=== PATIENT | male | born 1945 | race Caucasian/White ===

== ENCOUNTER 2017-12-26 16:41 | Emergency (ER) | payer OTHER, SELFPAY ==
[2017-12-26] VITALS (13 sets, daily range): BP systolic 120–157; BP diastolic 59–74; PULSE 53–75; RESP 16–24; TEMP 36.7; O2SAT 95–97; BMI 35.2
--- NOTE | 2017-12-26 17:00 | DI.RAD.S_ITS ---
PROCEDURE: XR CHEST 1V INDICATIONS: chest pain TECHNIQUE: One view of the chest was acquired. COMPARISON: None. FINDINGS: Surgical changes and devices: Patient is status post median sternotomy. Lungs and pleura: No pleural effusions or pneumothorax. Lungs are clear. Mediastinum: Mediastinal contours appear normal. Heart size is normal. Bones and chest wall: No suspicious bony lesions. Overlying soft tissues appear unremarkable. IMPRESSION: No acute cardiopulmonary findings. Dictated by: Lissette Lake M.D. on 12/26/2017 at 17:24 Approved by: Lissette Lake M.D. on 12/26/2017 at 17:25
[2017-12-26 17:16] LABS: Add Manual Diff / Slide Review NO; Basophils Percent Auto 0.5 % (0-2); Hemoglobin 14.1 g/dL (13.5-17.5); Lymphocytes Percent Auto 30.5 % (25-40); Mean Corpuscular HGB Conc 34.4 % (30-36); Mean Corpuscular Hemoglobin 31.6 PG (26-34); Monocytes Percent Auto 14.3 % (3-14); Neutrophils Absolute Auto 3100 /uL (3000-5900); Neutrophils Percent Auto 50.7 % (50-75); Platelet Count 197 X10^3/uL (150-400); Red Blood Cell Count 4.45 X10^6/uL (4.5-5.9); Red Cell Distribution Width 13.3 % (11.6-14.8); White Blood Cell Count 6.1 X10^3/uL (4.5-11.0)
[2017-12-26 17:24] LABS: Prothrombin Time 11.1 SECONDS (10.1-12.7)
[2017-12-26 17:26] LABS: PTT Partial Thromboplastin Tim 31 SECONDS (26.4-36.2)
[2017-12-26 17:28] LABS: Alanine Aminotransferase 46 IU/L (21-72); Albumin 3.8 g/dL (3.5-5.0); Albumin Globulin Ratio 1.6 (1.0-2.8); Alkaline Phosphatase 66 U/L (38-126); Aspartate Aminotransferase 31 IU/L (17-59); BUN Creatinine Ratio 24.5 (6-22); Bilirubin Total 0.5 mg/dL (0.2-1.3); Blood Urea Nitrogen 27 mg/dL (9-20); Calcium 8.9 mg/dL (8.4-10.2); Carbon Dioxide 27 mmol/L (22-32); Chloride 108 mmol/L (98-107); Creatine Kinase 94 U/L (55-170); Estimated Glomerular Filt Rate > 60.0 mL/min (>60); Globulin 2.4 g/dL (1.7-4.1); Glucose 96 mg/dL (80-110); HEMOLYSIS 17 (0-50); Lipase 115 U/L (23-300); Potassium 4.5 mmol/L (3.4-5.1); Sodium 142 mmol/L (137-145); Total Protein 6.2 g/dL (6.3-8.2)
[2017-12-26 17:40] LABS: Troponin I < 0.012 ng/mL (0.01-0.034)
[2017-12-26] MEDS: NITROGLYCERIN 0.4 MG SL TAB SL ×3 (17:47→17:57)
--- NOTE | 2017-12-26 18:02 | ED.CHESTPAIN ---
HPI - Chest Pain <CONOR RiveraANDALUS[facility] HEALTH - Last Filed: 12/26/17 22:24> General Chief Complaint: Chest Pain Stated Complaint: CHEST TIGHTNESS,RADIATES DOWN LEFT ARM AND BACK Time Seen by Provider: 12/26/17 17:19 Source: patient and family Mode of arrival: ambulatory Limitations: no limitations History of Present Illness HPI narrative: Patient presents with chief complaint of chest pain. He started having pain in his back a few days ago, then started having pain radiating down his left arm yesterday. He presents with intermittent stabbing chest pain. Denies alleviating or exacerbating factors. 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 He states he is usually in bigeminy. His pain can go up to an 8/10. He took aspirin at home. He denies current dizziness, nausea, vomiting, diarrhea, fever, cough, congestion. He denies radiation of his pain otherwise. He denies abdominal pain. 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 He denies cough or shortness of breath. Related Data Allergies Allergy/AdvReac Type Severity Reaction Status Date / Time Sulfa (Sulfonamide Allergy Verified 12/26/17 16:59 Antibiotics) Review of Systems <CONOR RiveraAND[facility]US[facility]ALTH - Last Filed: 12/26/17 22:24> Review of Systems GENERAL: Denies chills, fatigue, malaise, fever, sweats. HEENT: Denies sinus pain, ear pain, sore throat, difficulty swallowing, dizziness. RESPIRATORY: See HPI CARDIOVASCULAR: See HPI GASTROINTESTINAL: Denies nausea, vomiting, abdominal pain, diarrhea, constipation, melena. : Denies dysuria, frequency, incontinence, hematuria, urinary retention. MUSCULOSKELETAL: denies weakness, joint pain, or bony pain SKIN: Denies rash, skin lesions, or other NEUROLOGIC: Denies weakness, headache, numbness, change in speech, confusion, seizures, incoordination. PSYCHIATRIC: No concerning psychosocial issues. 12 point review of systems is negative except for those stated above Exam <CONOR [facility]AND[facility] - Last Filed: 12/26/17 22:24> Narrative Exam Narrative: GENERAL: This is a well-nourished, well-developed patient, lying on stretcher HEAD: Atraumatic. Normocephalic. No temporal or scalp tenderness. EYES: Pupils equal round and reactive. Extraocular motions intact. No scleral icterus. No injection or drainage. ENT: Nose without bleeding, purulent drainage or septal hematoma. Throat without erythema, tonsillar hypertrophy or exudate. Uvula midline. Airway patent. NECK: Trachea midline. No JVD or lymphadenopathy. Supple, nontender, no meningeal signs. CARDIOVASCULAR: Regular rate and rhythm. No noted murmurs or gallops. RESPIRATORY: Clear to auscultation. Breath sounds equal bilaterally. No wheezes, rales, or rhonchi. No cough. No increased respiratory effort. No tried potting, no wanted to her dyspnea. GASTROINTESTINAL: Abdomen soft, non-tender, nondistended. No hepato-splenomegaly, or palpable masses. No guarding. EXTREMITIES: No clubbing, cyanosis, or edema. No joint tenderness, effusion, or edema noted. No pain on palpation of C-spine or T-spine. BACK: Nontender without deformity or crepitance. No flank tenderness. NEURO: AOx3. SKIN: No rash or erythema. Initial Vital Signs Initial Vital Signs: Vital Signs Temperature 98.0 F 12/26/17 16:56 Pulse Rate 66 12/26/17 16:56 Respiratory Rate 18 12/26/17 16:56 Blood Pressure 148/62 H 12/26/17 16:56 Pulse Oximetry 97 12/26/17 16:56 <Puneet Avalos DO - Last Filed: 12/26/17 22:33> Initial Vital Signs Initial Vital Signs: Vital Signs Temperature 98.0 F 12/26/17 16:56 Pulse Rate 66 12/26/17 16:56 Respiratory Rate 18 12/26/17 16:56 Blood Pressure 148/62 H 12/26/17 16:56 Pulse Oximetry 97 12/26/17 16:56 Course <CONOR Rivera-BC - Last Filed: 12/26/17 22:24> Additional Information: I checked on the patient several times throughout his stay. Patient stated that his chest pain came and went and repeatedly declined morphine. I checked with him just prior to his transportation was scheduled at 10:30 p.m. and had no questions or concerns. He pain at that time Orders Ordered: ED Orders 12/26/17 17:00 XR chest 1V Stat 12/26/17 17:10 Complete Blood Count AUTO DIFF Stat Comprehensive Metabolic Panel Stat Lipase Stat Partial Thromboplastin Time Stat Prothrombin Time INR Stat Troponin & CK Cardiac Panel Stat 12/26/17 18:12 CT angio chest PE protocol Stat 12/26/17 20:10 Troponin & CK Cardiac Panel Stat Discontinued Medications Sodium Chloride (Normal Saline 0.9%) 1,000 mls @ 1,000 mls/hr IV BOLUS ONE Stop: 12/26/17 19:37 Last Infusion: 12/26/17 20:33 Dose: 0 mls/hr Admin: 12/26/17 19:31 Dose: 1,000 mls/hr Nitroglycerin (Nitrostat) 0.4 mg SL [id number] PRN PRN Reason: Chest Pain Last Admin: 12/26/17 17:57 Dose: 0.4 mg Admin: 12/26/17 17:52 Dose: 0.4 mg Admin: 12/26/17 17:47 Dose: 0.4 mg Vital Signs - 8 hr 12/26/17 16:56 12/26/17 17:00 12/26/17 17:47 Temperature 98.0 F Pulse Rate 66 64 53 L Respiratory Rate 18 16 Blood Pressure 148/62 H 157/71 H Blood Pressure [Right Arm] 144/61 H Pulse Oximetry 97 97 12/26/17 17:52 12/26/17 17:57 12/26/17 18:00 Temperature Pulse Rate 75 70 Respiratory Rate 24 Blood Pressure 123/68 129/67 Blood Pressure [Right Arm] 120/60 Pulse Oximetry 95 12/26/17 18:02 12/26/17 18:44 12/26/17 19:30 Temperature Pulse Rate 75 57 L 58 L Respiratory Rate 24 19 Blood Pressure 120/66 Blood Pressure [Right Arm] 128/67 154/60 H Pulse Oximetry 96 97 12/26/17 20:34 12/26/17 21:30 12/26/17 22:16 Temperature Pulse Rate 57 L 57 L 60 Respiratory Rate 16 18 19 Blood Pressure Blood Pressure [Right Arm] 145/59 H 134/67 148/74 H Pulse Oximetry 97 97 97 <Puneet Avalos, DO - Last Filed: 12/26/17 22:33> Orders Ordered: ED Orders 12/26/17 17:00 XR chest 1V Stat 12/26/17 17:10 Complete Blood Count AUTO DIFF Stat Comprehensive Metabolic Panel Stat Lipase Stat Partial Thromboplastin Time Stat Prothrombin Time INR Stat Troponin & CK Cardiac Panel Stat 12/26/17 18:12 CT angio chest PE protocol Stat 12/26/17 20:10 Troponin & CK Cardiac Panel Stat Discontinued Medications Sodium Chloride (Normal Saline 0.9%) 1,000 mls @ 1,000 mls/hr IV BOLUS ONE Stop: 12/26/17 19:37 Last Infusion: 12/26/17 20:33 Dose: 0 mls/hr Admin: 12/26/17 19:31 Dose: 1,000 mls/hr Nitroglycerin (Nitrostat) 0.4 mg SL [id number] PRN PRN Reason: Chest Pain Last Admin: 12/26/17 17:57 Dose: 0.4 mg Admin: 12/26/17 17:52 Dose: 0.4 mg Admin: 12/26/17 17:47 Dose: 0.4 mg Vital Signs - 8 hr 12/26/17 16:56 12/26/17 17:00 12/26/17 17:47 Temperature 98.0 F Pulse Rate 66 64 53 L Respiratory Rate 18 16 Blood Pressure 148/62 H 157/71 H Blood Pressure [Right Arm] 144/61 H Pulse Oximetry 97 97 12/26/17 17:52 12/26/17 17:57 12/26/17 18:00 Temperature Pulse Rate 75 70 Respiratory Rate 24 Blood Pressure 123/68 129/67 Blood Pressure [Right Arm] 120/60 Pulse Oximetry 95 12/26/17 18:02 12/26/17 18:44 12/26/17 19:30 Temperature Pulse Rate 75 57 L 58 L Respiratory Rate 24 19 Blood Pressure 120/66 Blood Pressure [Right Arm] 128/67 154/60 H Pulse Oximetry 96 97 12/26/17 20:34 12/26/17 21:30 12/26/17 22:16 Temperature Pulse Rate 57 L 57 L 60 Respiratory Rate 16 18 19 Blood Pressure Blood Pressure [Right Arm] 145/59 H 134/67 148/74 H Pulse Oximetry 97 97 97 MDM - Chest Pain <EMIL Rivera - Last Filed: 12/26/17 22:24> Differential Diagnosis Likely stable angina, unstable angina pectoris, atypical chest pain, st elevation myocardial infarction and chest pain Medical Records Data Attestation: I reviewed the patient's medical records. Lab Data Attestation: I reviewed the patient's lab results. Result diagrams: 12/26/17 17:10 12/26/17 17:10 Lab Results 12/26/17 12/26/17 12/26/17 Range/Units 17:10 17:10 17:10 WBC 6.1 (4.5-11.0) X10^3/uL RBC 4.45 L (4.5-5.9) X10^6/uL Hgb 14.1 (13.5-17.5) g/dL Hct 41.0 (41-53) % MCV 92.0 (80-100) fL MCH 31.6 (26-34) PG MCHC 34.4 (30-36) % RDW 13.3 (11.6-14.8) % Plt Count 197 (150-400) X10^3/uL Neut % (Auto) 50.7 (50-75) % Lymph % (Auto) 30.5 (25-40) % Laurens % (Auto) 14.3 H (3-14) % Eos % (Auto) 4.0 (2-4) % Baso % (Auto) 0.5 (0-2) % Neut # (Auto) 3100 (9043-0582) /uL PT 11.1 (10.1-12.7) SECONDS INR 1.0 (0.9-1.3) APTT 31 (26.4-36.2) SECONDS Sodium 142 (137-145) mmol/L Potassium 4.5 (3.4-5.1) mmol/L Chloride 108 H (98-107) mmol/L Carbon Dioxide 27 (22-32) mmol/L BUN 27 H (9-20) mg/dL Creatinine 1.10 (0.66-1.25) mg/dL Estimated GFR > 60.0 (>60) mL/min BUN/Creatinine Ratio 24.5 H (6-22) Glucose 96 (80-110) mg/dL Calcium 8.9 (8.4-10.2) mg/dL Total Bilirubin 0.5 (0.2-1.3) mg/dL AST 31 (17-59) IU/L ALT 46 (21-72) IU/L Alkaline Phosphatase 66 (38-126) U/L Total Creatine Kinase 94 (55-170) U/L Troponin I < 0.012 (0.01-0.034) ng/mL Total Protein 6.2 L (6.3-8.2) g/dL Albumin 3.8 (3.5-5.0) g/dL Globulin 2.4 (1.7-4.1) g/dL Albumin/Globulin Ratio 1.6 (1.0-2.8) Lipase 115 (23-300) U/L 12/26/17 Range/Units 20:10 WBC (4.5-11.0) X10^3/uL RBC (4.5-5.9) X10^6/uL Hgb (13.5-17.5) g/dL Hct (41-53) % MCV (80-100) fL MCH (26-34) PG MCHC (30-36) % RDW (11.6-14.8) % Plt Count (150-400) X10^3/uL Neut % (Auto) (50-75) % Lymph % (Auto) (25-40) % Laurens % (Auto) (3-14) % Eos % (Auto) (2-4) % Baso % (Auto) (0-2) % Neut # (Auto) (4134-9463) /uL PT (10.1-12.7) SECONDS INR (0.9-1.3) APTT (26.4-36.2) SECONDS Sodium (137-145) mmol/L Potassium (3.4-5.1) mmol/L Chloride (98-107) mmol/L Carbon Dioxide (22-32) mmol/L BUN (9-20) mg/dL Creatinine (0.66-1.25) mg/dL Estimated GFR (>60) mL/min BUN/Creatinine Ratio (6-22) Glucose (80-110) mg/dL Calcium (8.4-10.2) mg/dL Total Bilirubin (0.2-1.3) mg/dL AST (17-59) IU/L ALT (21-72) IU/L Alkaline Phosphatase (38-126) U/L Total Creatine Kinase 87 (55-170) U/L Troponin I < 0.012 (0.01-0.034) ng/mL Total Protein (6.3-8.2) g/dL Albumin (3.5-5.0) g/dL Globulin (1.7-4.1) g/dL Albumin/Globulin Ratio (1.0-2.8) Lipase (23-300) U/L Imaging Data Chest x-ray: Radiologist's impression: [address] [address] XRay Report Signed Patient: Aleksandr Emmanuel V MR#: [id number] : 1945 Acct:[id number] Age/Sex: 72 / M Date of Service: 12/26/17 Loc: ED Accession Number: [id number] Procedure: XR chest 1V Ordering Provider: Deyanira Galvez D.O. PROCEDURE: XR CHEST 1V INDICATIONS: chest pain TECHNIQUE: One view of the chest was acquired. COMPARISON: None. FINDINGS: Surgical changes and devices: Patient is status post median sternotomy. Lungs and pleura: No pleural effusions or pneumothorax. Lungs are clear. Mediastinum: Mediastinal contours appear normal. Heart size is normal. Bones and chest wall: No suspicious bony lesions. Overlying soft tissues appear unremarkable. IMPRESSION: No acute cardiopulmonary findings. Dictated by: Lissette Lake M.D. on 12/26/2017 at 17:24 Approved by: Lissette Lake M.D. on 12/26/2017 at 17:25 CTA chest: Radiologist's impression: [address] [address] [address] Scan Report Signed Patient: Aleksandr Emmanuel V MR#: [id number] : 1945 Acct:[id number] Age/Sex: 72 / M Date of Service: 12/26/17 Loc: ED Accession Number: [id number] Procedure: CT angio chest PE protocol Ordering Provider: Deyanira Peres [employer]IPROCATING [employer]RILL OPERATOR-BC PROCEDURE: CT ANGIO CHEST PE PROTOCOL INDICATIONS: chest pain, back pain TECHNIQUE: After the administration of intravenous contrast, 2 mm thick sections acquired from the pulmonary apices to the posterior costophrenic angles. 3-dimensional maximum intensity projection (MIP) coronal and sagittal reformats were then acquired through the thorax. For radiation dose reduction, the following was used: automated exposure control, adjustment of mA and/or kV according to patient size. COMPARISON: None. FINDINGS: Image quality: Excellent. Pulmonary arteries: Pulmonary arteries are normal in size, and demonstrate no intraluminal filling defects to suggest central pulmonary embolism. Lungs and pleura: Lungs are clear. No pleural effusions or pneumothorax. Central and peripheral airways are patent. Mediastinum: Heart size is normal, without pericardial effusion. No mediastinal or hilar adenopathy. Thoracic aorta is normal in caliber and enhancement. Esophagus is normal in caliber, without hiatal hernia. Bones and chest wall: Patient is status post median sternotomy. No suspicious bony lesions. Ribs and thoracic spine appear intact throughout. Thyroid gland is unremarkable. No axillary or supraclavicular adenopathy. Abdomen: Visualized upper abdominal solid organs appear normal in the early arterial phase of enhancement. IMPRESSION: 1. No acute pulmonary embolus. Dictated by: Lissette Lake M.D. on 12/26/2017 at 19:04 Approved by: Lissette Lake M.D. on 12/26/2017 at 19:07 [facility] Narrative Medical decision making narrative: Patient presents with chief complaint of chest pain, arm pain, back pain. Given his complex medical history including a CABG of multiple CVAs, a chest pain rule out was attempted. He was given 3 nitroglycerin. He was given a CTA given his pain radiating from his chest was back to rule out a PE. However given his history, and feel a thorough cardiac rule out is needed. The patient had a CBC, CMP, troponin and cardiac enzymes drawn. He had 2-troponins done. He does have some intermittent chest pain that is described as shooting and stabbing. However says he could comes and goes quickly. I offered him morphine, which he declined. I spoke with Dr. Greer at [facility] who kindly agreed to accept the patient for a cardiac rule out. Unfortunately there are no beds at [facility] were [facility]. <Puneet Avalos, DO - Last Filed: 12/26/17 22:33> Lab Data Lab Results 12/26/17 12/26/17 12/26/17 Range/Units 17:10 17:10 17:10 WBC 6.1 (4.5-11.0) X10^3/uL RBC 4.45 L (4.5-5.9) X10^6/uL Hgb 14.1 (13.5-17.5) g/dL Hct 41.0 (41-53) % MCV 92.0 (80-100) fL MCH 31.6 (26-34) PG MCHC 34.4 (30-36) % RDW 13.3 (11.6-14.8) % Plt Count 197 (150-400) X10^3/uL Neut % (Auto) 50.7 (50-75) % Lymph % (Auto) 30.5 (25-40) % Laurens % (Auto) 14.3 H (3-14) % Eos % (Auto) 4.0 (2-4) % Baso % (Auto) 0.5 (0-2) % Neut # (Auto) 3100 (8049-9754) /uL PT 11.1 (10.1-12.7) SECONDS INR 1.0 (0.9-1.3) APTT 31 (26.4-36.2) SECONDS Sodium 142 (137-145) mmol/L Potassium 4.5 (3.4-5.1) mmol/L Chloride 108 H (98-107) mmol/L Carbon Dioxide 27 (22-32) mmol/L BUN 27 H (9-20) mg/dL Creatinine 1.10 (0.66-1.25) mg/dL Estimated GFR > 60.0 (>60) mL/min BUN/Creatinine Ratio 24.5 H (6-22) Glucose 96 (80-110) mg/dL Calcium 8.9 (8.4-10.2) mg/dL Total Bilirubin 0.5 (0.2-1.3) mg/dL AST 31 (17-59) IU/L ALT 46 (21-72) IU/L Alkaline Phosphatase 66 (38-126) U/L Total Creatine Kinase 94 (55-170) U/L Troponin I < 0.012 (0.01-0.034) ng/mL Total Protein 6.2 L (6.3-8.2) g/dL Albumin 3.8 (3.5-5.0) g/dL Globulin 2.4 (1.7-4.1) g/dL Albumin/Globulin Ratio 1.6 (1.0-2.8) Lipase 115 (23-300) U/L / Range/Units 20:10 WBC (4.5-11.0) X10^3/uL RBC (4.5-5.9) X10^6/uL Hgb (13.5-17.5) g/dL Hct (41-53) % MCV (80-100) fL MCH (26-34) PG MCHC (30-36) % RDW (11.6-14.8) % Plt Count (150-400) X10^3/uL Neut % (Auto) (50-75) % Lymph % (Auto) (25-40) % Laurens % (Auto) (3-14) % Eos % (Auto) (2-4) % Baso % (Auto) (0-2) % Neut # (Auto) (3722-8101) /uL PT (10.1-12.7) SECONDS INR (0.9-1.3) APTT (26.4-36.2) SECONDS Sodium (137-145) mmol/L Potassium (3.4-5.1) mmol/L Chloride (98-107) mmol/L Carbon Dioxide (22-32) mmol/L BUN (9-20) mg/dL Creatinine (0.66-1.25) mg/dL Estimated GFR (>60) mL/min BUN/Creatinine Ratio (6-22) Glucose (80-110) mg/dL Calcium (8.4-10.2) mg/dL Total Bilirubin (0.2-1.3) mg/dL AST (17-59) IU/L ALT (21-72) IU/L Alkaline Phosphatase (38-126) U/L Total Creatine Kinase 87 (55-170) U/L Troponin I < 0.012 (0.01-0.034) ng/mL Total Protein (6.3-8.2) g/dL Albumin (3.5-5.0) g/dL Globulin (1.7-4.1) g/dL Albumin/Globulin Ratio (1.0-2.8) Lipase (23-300) U/L Discharge Plan Departure Patient Disposition: [facility] Clinical Impression: Chest pain <Puneet Avalos DO - Last Filed: 12/26/17 22:33> Cosign ED Attending Cosignature Attestation: I was available for consultation during this patient's emergency department encounter
--- NOTE | 2017-12-26 18:12 | DI.CT.S_ITS ---
PROCEDURE: CT ANGIO CHEST PE PROTOCOL INDICATIONS: chest pain, back pain TECHNIQUE: After the administration of intravenous contrast, 2 mm thick sections acquired from the pulmonary apices to the posterior costophrenic angles. 3-dimensional maximum intensity projection (MIP) coronal and sagittal reformats were then acquired through the thorax. For radiation dose reduction, the following was used: automated exposure control, adjustment of mA and/or kV according to patient size. COMPARISON: None. FINDINGS: Image quality: Excellent. Pulmonary arteries: Pulmonary arteries are normal in size, and demonstrate no intraluminal filling defects to suggest central pulmonary embolism. Lungs and pleura: Lungs are clear. No pleural effusions or pneumothorax. Central and peripheral airways are patent. Mediastinum: Heart size is normal, without pericardial effusion. No mediastinal or hilar adenopathy. Thoracic aorta is normal in caliber and enhancement. Esophagus is normal in caliber, without hiatal hernia. Bones and chest wall: Patient is status post median sternotomy. No suspicious bony lesions. Ribs and thoracic spine appear intact throughout. Thyroid gland is unremarkable. No axillary or supraclavicular adenopathy. Abdomen: Visualized upper abdominal solid organs appear normal in the early arterial phase of enhancement. IMPRESSION: 1. No acute pulmonary embolus. Dictated by: Lissette Lake M.D. on 12/26/2017 at 19:04 Approved by: Lissette Lake M.D. on 12/26/2017 at 19:07
[2017-12-26] MEDS: SODIUM CHLORIDE 0.9% 1,000 ML 1000 ML IV (19:31)
[2017-12-26 20:30] LABS: Creatine Kinase 87 U/L (55-170)
[2017-12-26 20:46] LABS: Troponin I < 0.012 ng/mL (0.01-0.034)
--- NOTE | 2017-12-26 20:53 | ED_ITS ---
HPI - Chest Pain <[facility] - Last Filed: 12/26/17 22:24> General Chief Complaint: Chest Pain Stated Complaint: CHEST TIGHTNESS,RADIATES DOWN LEFT ARM AND BACK Time Seen by Provider: 12/26/17 17:19 Source: patient and family Mode of arrival: ambulatory Limitations: no limitations History of Present Illness HPI narrative: Patient presents with chief complaint of chest pain. He started having pain in his back a few days ago, then started having pain radiating down his left arm yesterday. He presents with intermittent stabbing chest pain. Denies alleviating or exacerbating factors. 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 He states he is usually in bigeminy. His pain can go up to an 8/ 10. He took aspirin at home. He denies current dizziness, nausea, vomiting, diarrhea, fever, cough, congestion. He denies radiation of his pain otherwise. He denies abdominal pain. 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 He denies cough or shortness of breath. Related Data Allergies Allergy/AdvReac Type Severity Reaction Status Date / Time Sulfa (Sulfonamide Allergy Verified 12/26/17 16:59 Antibiotics) Review of Systems <[facility] - Last Filed: 12/26/17 22:24> Review of Systems GENERAL: Denies chills, fatigue, malaise, fever, sweats. HEENT: Denies sinus pain, ear pain, sore throat, difficulty swallowing, dizziness. RESPIRATORY: See HPI CARDIOVASCULAR: See HPI GASTROINTESTINAL: Denies nausea, vomiting, abdominal pain, diarrhea, constipation, melena. : Denies dysuria, frequency, incontinence, hematuria, urinary retention. MUSCULOSKELETAL: denies weakness, joint pain, or bony pain SKIN: Denies rash, skin lesions, or other NEUROLOGIC: Denies weakness, headache, numbness, change in speech, confusion, seizures, incoordination. PSYCHIATRIC: No concerning psychosocial issues. 12 point review of systems is negative except for those stated above Exam <[facility] - Last Filed: 12/26/17 22:24> Narrative Exam Narrative: GENERAL: This is a well-nourished, well-developed patient, lying on stretcher HEAD: Atraumatic. Normocephalic. No temporal or scalp tenderness. EYES: Pupils equal round and reactive. Extraocular motions intact. No scleral icterus. No injection or drainage. ENT: Nose without bleeding, purulent drainage or septal hematoma. Throat without erythema, tonsillar hypertrophy or exudate. Uvula midline. Airway patent. NECK: Trachea midline. No JVD or lymphadenopathy. Supple, nontender, no meningeal signs. CARDIOVASCULAR: Regular rate and rhythm. No noted murmurs or gallops. RESPIRATORY: Clear to auscultation. Breath sounds equal bilaterally. No wheezes , rales, or rhonchi. No cough. No increased respiratory effort. No tried potting, no wanted to her dyspnea. GASTROINTESTINAL: Abdomen soft, non-tender, nondistended. No hepato-splenomegaly , or palpable masses. No guarding. EXTREMITIES: No clubbing, cyanosis, or edema. No joint tenderness, effusion, or edema noted. No pain on palpation of C-spine or T-spine. BACK: Nontender without deformity or crepitance. No flank tenderness. NEURO: AOx3. SKIN: No rash or erythema. Initial Vital Signs Initial Vital Signs: Vital Signs Temperature 98.0 F 12/26/17 16:56 Pulse Rate 66 12/26/17 16:56 Respiratory Rate 18 12/26/17 16:56 Blood Pressure 148/62 H 12/26/17 16:56 Pulse Oximetry 97 12/26/17 16:56 <Puneet Avalos DO - Last Filed: 12/26/17 22:33> Initial Vital Signs Initial Vital Signs: Vital Signs Temperature 98.0 F 12/26/17 16:56 Pulse Rate 66 12/26/17 16:56 Respiratory Rate 18 12/26/17 16:56 Blood Pressure 148/62 H 12/26/17 16:56 Pulse Oximetry 97 12/26/17 16:56 Course <CONOR Rivera-[facility] - Last Filed: 12/26/17 22:24> Additional Information: I checked on the patient several times throughout his stay. Patient stated that his chest pain came and went and repeatedly declined morphine. I checked with him just prior to his transportation was scheduled at 10:30 p.m. and had no questions or concerns. He pain at that time Orders Ordered: ED Orders 12/26/17 17:00 XR chest 1V Stat 12/26/17 17:10 Complete Blood Count AUTO DIFF Stat Comprehensive Metabolic Panel Stat Lipase Stat Partial Thromboplastin Time Stat Prothrombin Time INR Stat Troponin & CK Cardiac Panel Stat 12/26/17 18:12 CT angio chest PE protocol Stat 12/26/17 20:10 Troponin & CK Cardiac Panel Stat Discontinued Medications Sodium Chloride (Normal Saline 0.9%) 1,000 mls @ 1,000 mls/hr IV BOLUS ONE Stop: 12/26/17 19:37 Last Infusion: 12/26/17 20:33 Dose: 0 mls/hr Admin: 12/26/17 19:31 Dose: 1,000 mls/hr Nitroglycerin (Nitrostat) 0.4 mg SL [id number] PRN PRN Reason: Chest Pain Last Admin: 12/26/17 17:57 Dose: 0.4 mg Admin: 12/26/17 17:52 Dose: 0.4 mg Admin: 12/26/17 17:47 Dose: 0.4 mg Vital Signs - 8 hr 12/26/17 16:56 12/26/17 17:00 12/26/17 17:47 Temperature 98.0 F Pulse Rate 66 64 53 L Respiratory Rate 18 16 Blood Pressure 148/62 H 157/71 H Blood Pressure [Right Arm] 144/61 H Pulse Oximetry 97 97 12/26/17 17:52 12/26/17 17:57 12/26/17 18:00 Temperature Pulse Rate 75 70 Respiratory Rate 24 Blood Pressure 123/68 129/67 Blood Pressure [Right Arm] 120/60 Pulse Oximetry 95 12/26/17 18:02 12/26/17 18:44 12/26/17 19:30 Temperature Pulse Rate 75 57 L 58 L Respiratory Rate 24 19 Blood Pressure 120/66 Blood Pressure [Right Arm] 128/67 154/60 H Pulse Oximetry 96 97 12/26/17 20:34 12/26/17 21:30 12/26/17 22:16 Temperature Pulse Rate 57 L 57 L 60 Respiratory Rate 16 18 19 Blood Pressure Blood Pressure [Right Arm] 145/59 H 134/67 148/74 H Pulse Oximetry 97 97 97 <Puneet Avalos, DO - Last Filed: 12/26/17 22:33> Orders Ordered: ED Orders 12/26/17 17:00 XR chest 1V Stat 12/26/17 17:10 Complete Blood Count AUTO DIFF Stat Comprehensive Metabolic Panel Stat Lipase Stat Partial Thromboplastin Time Stat Prothrombin Time INR Stat Troponin & CK Cardiac Panel Stat 12/26/17 18:12 CT angio chest PE protocol Stat 12/26/17 20:10 Troponin & CK Cardiac Panel Stat Discontinued Medications Sodium Chloride (Normal Saline 0.9%) 1,000 mls @ 1,000 mls/hr IV BOLUS ONE Stop: 12/26/17 19:37 Last Infusion: 12/26/17 20:33 Dose: 0 mls/hr Admin: 12/26/17 19:31 Dose: 1,000 mls/hr Nitroglycerin (Nitrostat) 0.4 mg SL [id number] PRN PRN Reason: Chest Pain Last Admin: 12/26/17 17:57 Dose: 0.4 mg Admin: 12/26/17 17:52 Dose: 0.4 mg Admin: 12/26/17 17:47 Dose: 0.4 mg Vital Signs - 8 hr 12/26/17 16:56 12/26/17 17:00 12/26/17 17:47 Temperature 98.0 F Pulse Rate 66 64 53 L Respiratory Rate 18 16 Blood Pressure 148/62 H 157/71 H Blood Pressure [Right Arm] 144/61 H Pulse Oximetry 97 97 12/26/17 17:52 12/26/17 17:57 12/26/17 18:00 Temperature Pulse Rate 75 70 Respiratory Rate 24 Blood Pressure 123/68 129/67 Blood Pressure [Right Arm] 120/60 Pulse Oximetry 95 12/26/17 18:02 12/26/17 18:44 12/26/17 19:30 Temperature Pulse Rate 75 57 L 58 L Respiratory Rate 24 19 Blood Pressure 120/66 Blood Pressure [Right Arm] 128/67 154/60 H Pulse Oximetry 96 97 12/26/17 20:34 12/26/17 21:30 12/26/17 22:16 Temperature Pulse Rate 57 L 57 L 60 Respiratory Rate 16 18 19 Blood Pressure Blood Pressure [Right Arm] 145/59 H 134/67 148/74 H Pulse Oximetry 97 97 97 MDM - Chest Pain <EMIL Rivera - Last Filed: 12/26/17 22:24> Differential Diagnosis Likely stable angina, unstable angina pectoris, atypical chest pain, st elevation myocardial infarction and chest pain Medical Records Data Attestation: I reviewed the patient's medical records. Lab Data Attestation: I reviewed the patient's lab results. Result diagrams: 12/26/17 17:10 12/26/17 17:10 Lab Results 12/26/17 12/26/17 12/26/17 Range/Units 17:10 17:10 17:10 WBC 6.1 (4.5-11.0) X10^3/uL RBC 4.45 L (4.5-5.9) X10^6/uL Hgb 14.1 (13.5-17.5) g/dL Hct 41.0 (41-53) % MCV 92.0 (80-100) fL MCH 31.6 (26-34) PG MCHC 34.4 (30-36) % RDW 13.3 (11.6-14.8) % Plt Count 197 (150-400) X10^3/uL Neut % (Auto) 50.7 (50-75) % Lymph % (Auto) 30.5 (25-40) % [place] % (Auto) 14.3 H (3-14) % Eos % (Auto) 4.0 (2-4) % Baso % (Auto) 0.5 (0-2) % Neut # (Auto) 3100 (3536-6682) /uL PT 11.1 (10.1-12.7) SECONDS INR 1.0 (0.9-1.3) APTT 31 (26.4-36.2) SECONDS Sodium 142 (137-145) mmol/L Potassium 4.5 (3.4-5.1) mmol/L Chloride 108 H (98-107) mmol/L Carbon Dioxide 27 (22-32) mmol/L BUN 27 H (9-20) mg/dL Creatinine 1.10 (0.66-1.25) mg/dL Estimated GFR > 60.0 (>60) mL/min BUN/Creatinine Ratio 24.5 H (6-22) Glucose 96 (80-110) mg/dL Calcium 8.9 (8.4-10.2) mg/dL Total Bilirubin 0.5 (0.2-1.3) mg/dL AST 31 (17-59) IU/L ALT 46 (21-72) IU/L Alkaline Phosphatase 66 (38-126) U/L Total Creatine Kinase 94 (55-170) U/L Troponin I < 0.012 (0.01-0.034) ng/mL Total Protein 6.2 L (6.3-8.2) g/dL Albumin 3.8 (3.5-5.0) g/dL Globulin 2.4 (1.7-4.1) g/dL Albumin/Globulin Ratio 1.6 (1.0-2.8) Lipase 115 (23-300) U/L 12/26/17 Range/Units 20:10 WBC (4.5-11.0) X10^3/uL RBC (4.5-5.9) X10^6/uL Hgb (13.5-17.5) g/dL Hct (41-53) % MCV (80-100) fL MCH (26-34) PG MCHC (30-36) % RDW (11.6-14.8) % Plt Count (150-400) X10^3/uL Neut % (Auto) (50-75) % Lymph % (Auto) (25-40) % [place] % (Auto) (3-14) % Eos % (Auto) (2-4) % Baso % (Auto) (0-2) % Neut # (Auto) (4165-8140) /uL PT (10.1-12.7) SECONDS INR (0.9-1.3) APTT (26.4-36.2) SECONDS Sodium (137-145) mmol/L Potassium (3.4-5.1) mmol/L Chloride (98-107) mmol/L Carbon Dioxide (22-32) mmol/L BUN (9-20) mg/dL Creatinine (0.66-1.25) mg/dL Estimated GFR (>60) mL/min BUN/Creatinine Ratio (6-22) Glucose (80-110) mg/dL Calcium (8.4-10.2) mg/dL Total Bilirubin (0.2-1.3) mg/dL AST (17-59) IU/L ALT (21-72) IU/L Alkaline Phosphatase (38-126) U/L Total Creatine Kinase 87 (55-170) U/L Troponin I < 0.012 (0.01-0.034) ng/mL Total Protein (6.3-8.2) g/dL Albumin (3.5-5.0) g/dL Globulin (1.7-4.1) g/dL Albumin/Globulin Ratio (1.0-2.8) Lipase (23-300) U/L Imaging Data Chest x-ray: Radiologist's impression: [address] [address] XRay Report Signed Patient: Aleksandr Emmanuel V MR#: [id number] : 1945 Acct:[id number] Age/Sex: 72 / M Date of Service: 12/26/17 Loc: ED Accession Number: [id number] Procedure: XR chest 1V Ordering Provider: Deyanira Galvez D.O. PROCEDURE: XR CHEST 1V INDICATIONS: chest pain TECHNIQUE: One view of the chest was acquired. COMPARISON: None. FINDINGS: Surgical changes and devices: Patient is status post median sternotomy. Lungs and pleura: No pleural effusions or pneumothorax. Lungs are clear. Mediastinum: Mediastinal contours appear normal. Heart size is normal. Bones and chest wall: No suspicious bony lesions. Overlying soft tissues appear unremarkable. IMPRESSION: No acute cardiopulmonary findings. Dictated by: Lissette Lake M.D. on 12/26/2017 at 17:24 Approved by: Lissette Lake M.D. on 12/26/2017 at 17:25 CTA chest: Radiologist's impression: [address] [address] [address] Scan Report Signed Patient: Aleksandr Emmanuel V MR#: [id number] : 1945 Acct:[id number] Age/Sex: 72 / M Date of Service: 12/26/17 Loc: ED Accession Number: [id number] Procedure: CT angio chest PE protocol Ordering Provider: Deyanira Peres [employer] PROCEDURE: CT ANGIO CHEST PE PROTOCOL INDICATIONS: chest pain, back pain TECHNIQUE: After the administration of intravenous contrast, 2 mm thick sections acquired from the pulmonary apices to the posterior costophrenic angles. 3-dimensional maximum intensity projection (MIP) coronal and sagittal reformats were then acquired through the thorax. For radiation dose reduction, the following was used: automated exposure control, adjustment of mA and/or kV according to patient size. COMPARISON: None. FINDINGS: Image quality: Excellent. Pulmonary arteries: Pulmonary arteries are normal in size, and demonstrate no intraluminal filling defects to suggest central pulmonary embolism. Lungs and pleura: Lungs are clear. No pleural effusions or pneumothorax. Central and peripheral airways are patent. Mediastinum: Heart size is normal, without pericardial effusion. No mediastinal or hilar adenopathy. Thoracic aorta is normal in caliber and enhancement. Esophagus is normal in caliber, without hiatal hernia. Bones and chest wall: Patient is status post median sternotomy. No suspicious bony lesions. Ribs and thoracic spine appear intact throughout. Thyroid gland is unremarkable. No axillary or supraclavicular adenopathy. Abdomen: Visualized upper abdominal solid organs appear normal in the early arterial phase of enhancement. IMPRESSION: 1. No acute pulmonary embolus. Dictated by: Lissette Lake M.D. on 12/26/2017 at 19:04 Approved by: Lissette Lake M.D. on 12/26/2017 at 19:07 [facility] Narrative Medical decision making narrative: Patient presents with chief complaint of chest pain, arm pain, back pain. Given his complex medical history including a CABG of multiple CVAs, a chest pain rule out was attempted. He was given 3 nitroglycerin. He was given a CTA given his pain radiating from his chest was back to rule out a PE. However given his history, and feel a thorough cardiac rule out is needed. The patient had a CBC, CMP, troponin and cardiac enzymes drawn. He had 2- troponins done. He does have some intermittent chest pain that is described as shooting and stabbing. However says he could comes and goes quickly. I offered him morphine, which he declined. I spoke with Dr. Greer at [place] who kindly agreed to accept the patient for a cardiac rule out. Unfortunately there are no beds at [facility]. <Puneet Avalos, DO - Last Filed: 12/26/17 22:33> Lab Data Lab Results 12/26/17 12/26/17 12/26/17 Range/Units 17:10 17:10 17:10 WBC 6.1 (4.5-11.0) X10^3/uL RBC 4.45 L (4.5-5.9) X10^6/uL Hgb 14.1 (13.5-17.5) g/dL Hct 41.0 (41-53) % MCV 92.0 (80-100) fL MCH 31.6 (26-34) PG MCHC 34.4 (30-36) % RDW 13.3 (11.6-14.8) % Plt Count 197 (150-400) X10^3/uL Neut % (Auto) 50.7 (50-75) % Lymph % (Auto) 30.5 (25-40) % [place] % (Auto) 14.3 H (3-14) % Eos % (Auto) 4.0 (2-4) % Baso % (Auto) 0.5 (0-2) % Neut # (Auto) 3100 (3494-2262) /uL PT 11.1 (10.1-12.7) SECONDS INR 1.0 (0.9-1.3) APTT 31 (26.4-36.2) SECONDS Sodium 142 (137-145) mmol/L Potassium 4.5 (3.4-5.1) mmol/L Chloride 108 H (98-107) mmol/L Carbon Dioxide 27 (22-32) mmol/L BUN 27 H (9-20) mg/dL Creatinine 1.10 (0.66-1.25) mg/dL Estimated GFR > 60.0 (>60) mL/min BUN/Creatinine Ratio 24.5 H (6-22) Glucose 96 (80-110) mg/dL Calcium 8.9 (8.4-10.2) mg/dL Total Bilirubin 0.5 (0.2-1.3) mg/dL AST 31 (17-59) IU/L ALT 46 (21-72) IU/L Alkaline Phosphatase 66 (38-126) U/L Total Creatine Kinase 94 (55-170) U/L Troponin I < 0.012 (0.01-0.034) ng/mL Total Protein 6.2 L (6.3-8.2) g/dL Albumin 3.8 (3.5-5.0) g/dL Globulin 2.4 (1.7-4.1) g/dL Albumin/Globulin Ratio 1.6 (1.0-2.8) Lipase 115 (23-300) U/L / Range/Units 20:10 WBC (4.5-11.0) X10^3/uL RBC (4.5-5.9) X10^6/uL Hgb (13.5-17.5) g/dL Hct (41-53) % MCV (80-100) fL MCH (26-34) PG MCHC (30-36) % RDW (11.6-14.8) % Plt Count (150-400) X10^3/uL Neut % (Auto) (50-75) % Lymph % (Auto) (25-40) % [place] % (Auto) (3-14) % Eos % (Auto) (2-4) % Baso % (Auto) (0-2) % Neut # (Auto) (0044-0503) /uL PT (10.1-12.7) SECONDS INR (0.9-1.3) APTT (26.4-36.2) SECONDS Sodium (137-145) mmol/L Potassium (3.4-5.1) mmol/L Chloride (98-107) mmol/L Carbon Dioxide (22-32) mmol/L BUN (9-20) mg/dL Creatinine (0.66-1.25) mg/dL Estimated GFR (>60) mL/min BUN/Creatinine Ratio (6-22) Glucose (80-110) mg/dL Calcium (8.4-10.2) mg/dL Total Bilirubin (0.2-1.3) mg/dL AST (17-59) IU/L ALT (21-72) IU/L Alkaline Phosphatase (38-126) U/L Total Creatine Kinase 87 (55-170) U/L Troponin I < 0.012 (0.01-0.034) ng/mL Total Protein (6.3-8.2) g/dL Albumin (3.5-5.0) g/dL Globulin (1.7-4.1) g/dL Albumin/Globulin Ratio (1.0-2.8) Lipase (23-300) U/L Discharge Plan Departure Patient Disposition: [facility] Clinical Impression: Chest pain <Puneet Avalos DO - Last Filed: 12/26/17 22:33> Cosign ED Attending Cosignature Attestation: I was available for consultation during this patient's emergency department encounter
== END 2017-12-26 23:30 | disposition short-term general hospital (02) ==
PROVIDERS: Emergency Medicine; Emergency Provider Nurse Practitioner Family; PCP Family Medicine
DX: R07.89 Other chest pain (principal)
CPT/HCPCS: 36415; 36591; 71045; 71275; 80053; 82550; 82553; 83690; 84484; 85025; 85610; 85730; 93005; 96360; 99284; 99285; Q9967

== ENCOUNTER → 2021-03-27 12:58 | Outpatient (CLI) | payer OTHER, SELFPAY ==
--- NOTE | 2021-03-27 | DI.ECHO.S_ITS ---
[place] [facility]---------+ [facility] +---------+ : : [address] : : : : [id number] : : : : Phone: [phone]+ Echocardiogram Report + + :Name: CELINE BRUCE V Study Date: 03/27/2021 Height: 69 in : :[facility] ReadingLocation: Weight: 240 lb : : Gender: Male BSA: 2.2 m2 : :: 1945 Age: 75 yrs BP: 143/84 mmHg: :Reason For Study: Hx of TIA : :Ordering Physician: : :CLARITZA Performed By: Lisandro Rodriguez : :Referring: TANYA KERNS : + + Interpretation Summary The patient was in normal sinus rhythm during the exam. The left ventricle is normal in size. There is no LV thrombus. The ejection fraction is estimated to be 55-60%. The right ventricle is normal in size and function. Injection of contrast documented no interatrial shunt. There is mild to moderate mitral regurgitation. There is mild tricuspid regurgitation. Right ventricular systolic pressure is estimated to be 25 mmHg plus the clinically estimated CVP which cannot be estimated on this exam. There is aortic root sclerosis/calcification. Mild atherosclerotic plaque(s) in the aortic arch. Procedure: A two-dimensional transthoracic echocardiogram with color flow and Doppler was performed. The study quality was technically adequate. There is no prior echocardiogram noted for this patient. The subcostal views were difficult to obtain and are suboptimal in quality. The patient was in normal sinus rhythm during the exam. Left Ventricle: There is borderline proximal septal thickening noted. The left ventricle is normal in size. A false chord is noted (normal variant). There is no thrombus. The ejection fraction is estimated to be 55-60%. There are no focal wall motion abnormalities. MV E/A: 1.0 Med Peak E' Bradley: 7.4 cm/sec E/E' med: 10.7 No significant diastolic dysfunction. Right Ventricle: The right ventricle is normal in size and function. Atria: Borderline left atrial enlargement. The right atrium is mildly dilated. Bubble studies w valsalva slides 77, 78 and 79. No evidence of shunting. Injection of contrast documented no interatrial shunt. Mitral Valve: The mitral valve is normal. There is mild to moderate mitral regurgitation. Aortic Valve: The aortic valve is trileaflet. The aortic valve opens well. There is no aortic valve stenosis. There is trace aortic regurgitation. Tricuspid Valve: The tricuspid valve is normal. There is mild tricuspid regurgitation. Right ventricular systolic pressure is estimated to be 25 mmHg plus the clinically estimated CVP which cannot be estimated on this exam. Pulmonic Valve: The pulmonic valve is normal in structure and function. Great Vessels: The aortic root is normal size. There is aortic root sclerosis/calcification. The ascending aorta is normal in size. The aortic arch is normal in size. Mild atherosclerotic plaque(s) in the aortic arch. The inferior vena cava was not well visualized. Pericardium/ Pleura There is no pericardial effusion. There is an anterior echo-free space consistent with a fat pad. There is no pleural effusion. MMode/2D Measurements & Calculations LVIDd: 4.6 cm LVOT diam: 2.2 cm LVIDs: 3.0 cm Ao root diam: 3.5 cm FS: 34.8 % asc Aorta Diam: 3.5 cm IVSd: 1.1 cm Ao Arch Diam (Prox Trans): 3.1 cm LVPWd: 0.80 cm LV vernon. diameter/BSA (cm/m^2): 2.1 LV sys. diameter/BSA (cm/m^2): 1.3 LA A2 area: 24.9 cm2 RA long axis: 5.8 cm LA A4 area: 21.3 cm2 LA length (vol): 6.1 cm LA vol: 73.6 ml LA vol index: 33.0 ml/m2 LVLs ap4: 6.2 cm LVLd ap2: 7.3 cm LVLs ap2: 5.7 cm TAPSE_phl: 2.5 cm Doppler Measurements & Calculations Ao V2 max: 97.6 cm/sec LVOT Max Bradley: 88.1 cm/sec Ao V2 mean: 72.0 cm/sec LV V1 max P.1 mmHg Ao max P.0 mmHg LV V1 VTI: 23.3 cm Ao mean P.0 mmHg ASH(I,D): 3.8 cm2 Ao V2 VTI: 23.5 cm ASH(V,D): 3.4 cm2 sev ratio: 0.99 ASH indexed to BSA (cm^2/m^2): 1.7 MV E max bradley: 78.4 cm/sec TR max bradley: 248.4 cm/sec MV A max bradley: 78.4 cm/sec TR max P.7 mmHg MV E/A: 1.0 PA V2 max: 81.6 cm/sec Med Peak E' Bradley: 7.4 cm/sec PA V2 mean: 59.4 cm/sec E/E' med: 10.7 PA mean P.0 mmHg Lat Peak E' Bradley: 9.6 cm/sec PA pr(Accel): 33.1 mmHg E/E' lat: 8.2 E/e' average: 9.4 MV dec time: 0.24 sec SV(LVOT): 88.6 ml AV VR_phl: 0.90 ASH(VTI)/BSA_phl: 1.7 MV P1/2t-pr_phl: 71.0 msec Reading Physician:06:06 PM
== END ==
PROVIDERS: PCP Internal Medicine; Referring Provider Internal Medicine Cardiovascular Disease; Visit Provider Internal Medicine Cardiovascular Disease
DX: Z86.73 Personal history of transient ischemic attack (TIA), and cerebral infarction without residual deficits (principal); I08.1 Rheumatic disorders of both mitral and tricuspid valves; Z09 Encounter for follow-up examination after completed treatment for conditions other than malignant neoplasm; I70.0 Atherosclerosis of aorta
CPT/HCPCS: 93306

== ENCOUNTER → 2021-10-22 18:30 | Outpatient (CLI) | payer OTHER, SELFPAY ==
--- NOTE | 2021-10-22 | DI.MRI.S_ITS ---
PROCEDURE: MR ANGIO NECK W CON INDICATIONS: Cerebral infarction, unspecified TECHNIQUE: Axial and sagittal TruFISP through the neck. Coronal dynamic MRA after the administration of contrast in the arterial and venous phases, with rotating 3-dimensional maximum intensity projection (MIP) reformats constructed from subtraction images. COMPARISON: [facility], , CAROTID ARTERY DOPPLER BILAT, 11/16/2013, 13:04. FINDINGS: Image quality: Excellent. Carotid system: Great vessels demonstrate a conventional anatomy as they arise from the aortic arch. The origins of the common carotid arteries appear normal. The calibers and courses of the common carotid arteries are likewise normal. Atherosclerotic disease noted in the proximal right internal carotid artery which causes less than 50% stenosis of the vessel. Left internal carotid artery appears fully patent. 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 There is reconstitution of diminished flow in the distal cervical segment of the right vertebral artery. Moderate atherosclerotic stenosis noted in the origin of the left vertebral artery. The more superior portions of the vertebral arteries demonstrate normal course and caliber. Vertebral arteries join to form a normal appearing basilar artery. Miscellaneous: Subclavian arteries are patent throughout. Pre-contrast images through the neck demonstrate no soft tissue abnormalities. IMPRESSION: 1. Less than 50% stenosis of the proximal right internal carotid artery. 2. Left internal carotid artery is fully patent. 3. 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 4. 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 Any quantitative measurements of stenosis were performed using NASCET criteria. Dictated by: Grace Adam MD, PhD on 10/23/2021 at 9:34 Approved by: Grace Adam MD, PhD on 10/23/2021 at 9:40
== END ==
PROVIDERS: PCP Internal Medicine; Referring Provider Internal Medicine; Visit Provider Internal Medicine
DX: I63.9 Cerebral infarction, unspecified (principal); I65.21 Occlusion and stenosis of right carotid artery; I65.02 Occlusion and stenosis of left vertebral artery
CPT/HCPCS: 70548; A9579

== ENCOUNTER → 2023-09-20 08:36 | Outpatient (CLI) | payer OTHER, SELFPAY ==
--- NOTE | 2023-09-20 08:39 | DI.NM.S_ITS ---
PROCEDURE: NM MEHREEN PERF SPECT REST & STR Rest and exercise myocardial perfusion SPECT with gated imaging and ejection fraction RADIOPHARMACEUTICAL: 12.2 mCi Tc-99m sestamibi IV at rest and 25.4 mCi Tc-99m sestamibi IV at peak exercise. A [id number]-[id number] was performed. 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 SPECT images were obtained. SPECT myocardial perfusion images were displayed in short axis, horizontal long axis, and vertical long axis views. Gated images were reviewed using [employer] software. COMPARISON: None. CARDIAC STRESS: A standard Aleksandr treadmill exercise tolerance test was performed by the patient under the supervision of an attending staff. The patient exercised for 6 minutes and 40 seconds; 7.0 METS; functional aerobic impairment (CARLITA) is -16%. Hemodynamic data: There is normal blood pressure and heart rate response to exercise stress. Patient achieved 87% of maximum predicted heart rate at peak exercise. Maximum blood pressure 144/70. Symptoms: Patient denied chest pain during exercise. EKG: Rest ECG sinus rhythm with occasional PVCs. Exercise ECG sinus tachycardia, [address] segment depressions leads II, III, aVF and V3 to V6, ongoing PVCs. FINDINGS: Raw data: There is good myocardial labeling by radiotracer. No significant motion artifacts. Jjuc-nx-myxwt ratio is 0.27 (normal is less than 0.38 for sestamibi tracer, and less than 0.50 for thallium tracer). Left ventricle function: Gated images demonstrate normal left ventricle wall thickening. No segmental wall motion abnormality. No transient ischemic dilation; TID is 0.84 (normal less than 1.3). The left ventricle resting end-diastolic volume is 93 mL. Left ventricle stress ejection fraction is >75%; normal values are above 45%. Myocardial perfusion: There is normal distribution of activity in the left and right ventricular myocardium. No fixed or reversible perfusion defects. IMPRESSION: Low risk study. No evidence of exercise-induced ischemia on SPECT imaging. Normal LV size with hyperdynamic function. Abnormal exercise ECG unlikely due to ischemia in the setting of normal perfusion imaging. Normal hemodynamic response. Good exercise capacity. Dictated by: Romana Dangelo D.O. on 09/21/2023 at 12:54 Approved by: Romana Dangelo D.O. on 09/21/2023 at 12:58
== END ==
LOC: NUCM 08:37
PROVIDERS: PCP Internal Medicine; Referring Provider Nurse Practitioner; Visit Provider Nurse Practitioner
DX: I25.10 Atherosclerotic heart disease of native coronary artery without angina pectoris (principal); R94.31 Abnormal electrocardiogram [ECG] [EKG]; Z95.1 Presence of aortocoronary bypass graft
CPT/HCPCS: 78452; 93017; A9502

== ENCOUNTER → 2023-10-07 07:05 | Outpatient (CLI) | payer OTHER, SELFPAY ==
--- NOTE | 2023-10-07 07:06 | DI.MRI.S_ITS ---
PROCEDURE: MR THORACIC SPINE WO CON INDICATIONS: BACK PAIN,THORACIC REGION, TECHNIQUE: Noncontrast sagittal T1 spine echo and T2 fast spin echo, sagittal STIR, and T2 fast spin echo through the thoracic spine. COMPARISON: None. FINDINGS: Alignment and Curvature: There is normal bony alignment. Bone Marrow: Typical T12 vertebral hemangioma noted. Spinal Cord: Visualized spinal cord is normal in size and signal. Paraspinous Soft Tissues: No paravertebral masses. Partially imaged 3.3 cm left renal cyst Miscellaneous: On axial images, central canal and foramina appear widely patent at all scanned levels. IMPRESSION: Typical T12 vertebral hemangioma. Otherwise unremarkable MRI thoracic spine Approved by: Prieto Bowen M.D. on 10/07/2023 at 13:48
--- NOTE | 2023-10-07 07:07 | DI.CT.S_ITS ---
PROCEDURE: CT CHEST WO CON INDICATIONS: PULMONARY NODULE LT TECHNIQUE: Noncontrast 5 mm thick sections acquired from the pulmonary apices to the posterior costophrenic angles. 1 mm lung window, 5 mm thick coronal and sagittal and 7 mm axial MIP reformats were then acquired. For radiation dose reduction, the following was used: automated exposure control, adjustment of mA and/or kV according to patient size. COMPARISON: [facility], CT, CT ANGIO CHEST PE PROTOCOL, 12/26/2017, 18:21. Outside Facility, RG, CT THORAX W/O CONTRAST, 01/02/2022, 10:55. FINDINGS: Image quality: Diagnostic. Lower Neck: No enlarged lymph nodes. Thyroid: No thyroid nodules which require sonographic follow up, per consensus guidelines. Axillae: No enlarged lymph nodes. Chest Wall: Trace gynecomastia. Bones: Sternotomy. Lungs and Pleura: No pneumothorax or pleural effusions. Juxtapleural nodules with smooth margins, favoring benign intrapulmonary lymph nodes. Multiple solid pulmonary nodules are stable from prior. Examples include: -2-3 mm solid nodule, right lung apex (series 3, image 44). -3 mm solid nodule, left lower lobe (series 3, image 223). Heart: Heart size is mildly enlarged. No pericardial effusion. Three-vessel coronary calcifications. Thoracic Vessels: The aorta and pulmonary arteries demonstrate normal size. Mediastinum and [place]: No enlarged lymph nodes. Esophagus: No wall thickening. No hiatal hernia. Upper Abdomen: Visualized upper abdomen solid organs and bowel loops appear normal. IMPRESSION: Stable solid pulmonary nodules compared with 01/02/2022. These are statistically benign. Dictated by: Henrry Campo M.D. on 10/07/2023 at 11:14 Approved by: Henrry Campo M.D. on 10/07/2023 at 11:27
== END ==
PROVIDERS: PCP Internal Medicine; Referring Provider Internal Medicine; Visit Provider Internal Medicine
DX: M47.816 Spondylosis without myelopathy or radiculopathy, lumbar region (principal); N28.1 Cyst of kidney, acquired; M54.6 Pain in thoracic spine; D18.09 Hemangioma of other sites; R91.8 Other nonspecific abnormal finding of lung field; I51.7 Cardiomegaly; I25.10 Atherosclerotic heart disease of native coronary artery without angina pectoris
CPT/HCPCS: 71250; 72146

== ENCOUNTER → 2025-01-11 10:12 | Outpatient (CLI) | payer MEDICARE, SELFPAY ==
--- NOTE | 2025-01-11 10:14 | DI.ECHO.S_ITS ---
[facility] : : [id number] : : [place] : : [id number] : : Phone: [phone] Echocardiogram Report + + :Name: CELINE BRUCE V Study Date: 01/11/2025 Height: 68 in : :[facility] ReadingLocation: Weight: 210 lb : : Gender: Male BSA: 2.1 m2 : :: 1945 Age: 79 yrs BP: 131/84 mmHg: :Reason For Study: SYNCOPE : :Ordering Physician: LUIS F, : :TANYA Performed By: José Antonio Chin : :Referring: TANYA KERNS : + + Interpretation Summary The left ventricle is normal in size. The left ventricular ejection fraction is normal. LVEF 60 to 65% without any significant change. Borderline right ventricular enlargement. The right ventricular systolic function is normal. There is mild mitral regurgitation. Previously mild to moderate MR. There is mild tricuspid regurgitation. Compared to the prior echo exam, there has been no change in TR severity. The inferior vena cava was not visualized. There is aortic root sclerosis/calcification. Procedure: A two-dimensional transthoracic echocardiogram with color flow and Doppler was performed. The study quality was technically good. There is no prior echocardiogram noted for this patient. The patient was in normal sinus rhythm during the exam. Left Ventricle: The left ventricle is normal in size. Left ventricular wall thickness is mildly increased. There is no thrombus. The ejection fraction is estimated to be 60-65%. The left ventricular ejection fraction is normal. There has been no significant change since the previous exam. There are no focal wall motion abnormalities. Diastolic parameters suggest probable normal left ventricular diastolic function and normal filling pressures. Right Ventricle: Borderline right ventricular enlargement. The right ventricular systolic function is normal. Atria: The left atrium is borderline dilated. There has been no significant change since the previous study. Right atrial size is normal. There is no Doppler evidence for an interatrial shunt. Mitral Valve: The mitral valve leaflets appear normal. There is no evidence of stenosis, fluttering, or prolapse. There is mild mitral regurgitation. Aortic Valve: The aortic valve is trileaflet. The aortic valve opens well. The aortic valve is mildly calcified. There is no aortic valve stenosis. No aortic regurgitation is present. Tricuspid Valve: The tricuspid valve is normal. There is mild tricuspid regurgitation. Right ventricular systolic pressure is estimated to be 28 mmHg plus the clinically estimated CVP which cannot be estimated on this exam. Compared to the prior echo exam, there has been no change in TR severity. Pulmonic Valve: The pulmonic valve leaflets are thin and pliable; valve motion is normal. There is no pulmonic valvular regurgitation. Great Vessels: There is aortic root sclerosis/calcification. The aortic root is normal size. The dimensions of the ascending aorta are normal. Aortic arch not well-visualized. The pulmonary artery is normal size. The inferior vena cava was not visualized. Pericardium/ Pleura There is no pericardial effusion. MMode/2D Measurements & Calculations LVIDd: 4.3 cm LVOT diam: 2.4 cm LVIDs: 3.0 cm Ao root diam: 3.7 cm FS: 29.5 % asc Aorta Diam: 3.5 cm EPSS: 0.49 cm IVSd: 1.1 cm LVPWd: 1.2 cm LV vernon. diameter/BSA (cm/m^2): 2.0 LV sys. diameter/BSA (cm/m^2): 1.4 LA A2 area: 21.0 cm2 RA long axis: 5.9 cm LA A4 area: 23.5 cm2 RA area: 19.2 cm2 LA length (vol): 6.0 cm RA vol: 53.1 ml LA vol: 69.8 ml RA : 25.4 ml/m2 LA vol index: 33.5 ml/m2 RVD1 (basal): 4.5 cm RVD2 (mid): 3.2 cm TAPSE: 2.0 cm Doppler Measurements & Calculations Ao V2 max: 122.5 cm/sec LVOT Max Bradley: 85.0 cm/sec Ao V2 mean: 81.8 cm/sec LV V1 max P.9 mmHg Ao max P.0 mmHg LV V1 VTI: 21.7 cm Ao mean P.1 mmHg SAH(I,D): 3.8 cm2 Ao V2 VTI: 25.5 cm ASH(V,D): 3.1 cm2 sev ratio: 0.85 ASH indexed to BSA (cm^2/m^2): 1.8 MV E max bradley: 66.0 cm/sec TR max bradley: 264.0 cm/sec MV A max bradley: 66.3 cm/sec TR max P.9 mmHg MV E/A: 1.00 PA V2 max: 108.3 cm/sec Med Peak E' Bradley: 7.9 cm/sec PA V2 mean: 73.6 cm/sec E/E' med: 8.3 PA mean P.4 mmHg Lat Peak E' Bradley: 10.8 cm/sec PA pr(Accel): 60.2 mmHg E/E' lat: 6.1 E/e' average: 7.2 MV dec time: 0.21 sec SV([facility]): 95.9 ml Reading Physician:05:[id number] PM
== END ==
LOC: ECHO 10:13
PROVIDERS: PCP Nurse Practitioner Acute Care; Referring Provider Nurse Practitioner Acute Care; Visit Provider Internal Medicine Cardiovascular Disease
DX: I08.1 Rheumatic disorders of both mitral and tricuspid valves (principal); R55 Syncope and collapse
CPT/HCPCS: 93306

== ENCOUNTER → 2025-01-12 09:00 | Outpatient (CLI) | payer MEDICARE, SELFPAY ==
--- NOTE | 2025-01-12 09:00 | DI.US.S_ITS ---
PROCEDURE: US CAROTID DOPPLER BI INDICATIONS: carotid plaque TECHNIQUE: Color and pulse Doppler interrogation was performed of both carotid systems, with image documentation and velocity measurements. COMPARISON: None. FINDINGS: Stenosis calculations are based on SRU (Society of Radiologists in Ultrasound) criteria. Right side: Brachial blood pressure: Not obtained Common carotid artery peak systolic velocity: 61 cm/sec. Internal carotid artery peak systolic velocity: 116 cm/sec. Internal carotid artery end diastolic velocity: 42 cm/sec. External carotid artery peak systolic velocity: 119 cm/sec. ICA/CCA peak systolic ratio: 1.9 . [place] scale imaging description: Areas of mild to moderate echogenic and calcified plaque is seen at the carotid bifurcation and the proximal internal and external carotid arteries. Percent internal carotid artery stenosis: Less than 50% . Vertebral artery: Flow direction is antegrade. Left side: Brachial blood pressure: Not obtained Common carotid artery peak systolic velocity: 75 cm/sec. Internal carotid artery peak systolic velocity: 132 cm/sec. Internal carotid artery end diastolic velocity: 43 cm/sec. External carotid artery peak systolic velocity: 90 cm/sec. ICA/CCA peak systolic ratio: 1.8 . [place] scale imaging description: Areas of moderate echogenic and calcified plaque are seen in the carotid bifurcation and proximal internal and external carotid arteries. Percent internal carotid artery stenosis: 50-69% . Vertebral artery: Flow direction is antegrade. IMPRESSION: 1. In the right carotid artery, there is less than 50% stenosis based on peak systolic velocity criteria. 2. In the left carotid artery, there is 50-69% stenosis based on peak systolic velocity criteria. 3. Antegrade vertebral arteries. Dictated by: Luna Reese M.D. on 01/13/2025 at 23:11 Approved by: Luna Reese M.D. on 01/13/2025 at 23:13
== END ==
LOC: US 09:00
PROVIDERS: PCP Nurse Practitioner Acute Care; Referring Provider Internal Medicine Cardiovascular Disease; Visit Provider Internal Medicine Cardiovascular Disease
DX: I65.23 Occlusion and stenosis of bilateral carotid arteries (principal)
CPT/HCPCS: 93880

== ENCOUNTER → 2025-03-19 07:14 | Outpatient (CLI) | payer MEDICARE, SELFPAY ==
--- NOTE | 2025-03-19 07:16 | DI.NM.S_ITS ---
PROCEDURE: NM MEHREEN PERF SPECT R&S PHARM Rest and pharmacological stress myocardial perfusion SPECT with gated imaging and ejection fraction RADIOPHARMACEUTICAL: 11.5 mCi Tc-99m tetrafosmin IV at rest and 26.1 mCi Tc-99m tetrafosmin IV at peak effect of pharmacological stress. [id number] was performed. INDICATIONS: NSVT PQRS ATTESTATIONS: Measure 322 - Is this imaging test primarily performed on a low-risk surgery patient for preoperative evaluation within 30 days preceding their low-risk non-cardiac surgery? Low-risk surgery is defined as cardiac or myocardial infarction less than 1%, including (but not limited to) endoscopic procedures, superficial procedures, cataract surgery, and excisional breast surgery: Answer: No Measure 323 - Is this imaging test performed primarily for the monitoring of an asymptomatic patient who had percutaneous coronary intervention on the visit date or within 2 years of the visit date? Answer: No Measure 324 - Is this imaging test performed primarily for the initial detection and risk assessment on an asymptomatic, low coronary heart disease patient? Low CHD risk definition = clinicians should consider the maximum number of available patient factors used to estimate risk based on [place] (ATP III criteria), typically age, gender, diabetes, smoking status, and use of blood pressure medication, and integrate age appropriate estimates for missing elements, such as LDL or standard blood pressure. Answer: No TECHNIQUE: Radiopharmaceutical was injected at peak stress test, and also at rest. SPECT images were obtained. SPECT myocardial perfusion images were displayed in short axis, horizontal long axis, and vertical long axis views. Gated images were reviewed using [employer] software. COMPARISON: None. CARDIAC STRESS: A pharmacologic stress test was performed under the supervision of an attending staff, using an infusion of 0.4 mg of Lexiscan. Patient was initially stressed using the treadmill but had to be converted to a pharmacological stressor. Hemodynamic data: There is normal blood pressure and heart rate response to pharmacologic stress. Symptoms: The patient denied anginal chest pain. Aminophylline: None EKG: No diagnostic changes of ischemia; 3 beats of NSVT noted while patient was exercising. Once converted to Lexiscan, isolated PVCs but a frequent burden was noted.. FINDINGS: Raw data: There is good myocardial uptake of radiotracer. No significant motion artifacts. Htmg-fc-bcbyp ratio is 0.21 (normal is less than 0.38 for tetrafosmin tracer). Left ventricle function: Gated images demonstrate normal left ventricular wall thickening. No segmental wall motion abnormalities. No transient ischemic dilation; TID is 0.75 (normal less than 1.3). Left ventricle resting end diastolic volume is 100 mL. Left ventricle stress ejection fraction is 85%; normal range is above 45%. Myocardial perfusion: Rest images had mild hypoperfusion noted in the apical segment. No other perfusion defects were identified. Stress and prone images demonstrated no perfusion defects. IMPRESSION: Negative Lexiscan myocardial perfusion scan for ischemia and infarction. Dictated by: Alexander Ward M.D. on 03/19/2025 at 17:11 Approved by: Alexander Ward M.D. on 03/19/2025 at 17:13
== END ==
LOC: NUCM 07:15
PROVIDERS: PCP Nurse Practitioner Acute Care; Referring Provider Nurse Practitioner Acute Care; Visit Provider Internal Medicine Cardiovascular Disease
DX: I47.29 Other ventricular tachycardia (principal); Z95.1 Presence of aortocoronary bypass graft
CPT/HCPCS: 78452; 93017; A9502; J2785